=== PATIENT | male | born 1990 | race African-American/Black ===

== ENCOUNTER 2017-07-03 11:11 | Emergency (ER) | payer OTHER ==
[~2017-07-03] VITALS: Ht 182.9 cm; Wt 74.8 kg
[2017-07-03 11:26] VITALS: BP 115/63
[2017-07-03] MEDS ORDERED: Ketorolac 30mg Inj IM ONE (11:45)
[2017-07-03] MEDS ORDERED: TAMIFLU75 MG ORAL (12:19)
[2017-07-03] MEDS ORDERED: AMOXICILLIN500 MG ORAL (12:19)
[2017-07-03 12:28] VITALS: BP 115/63
--- NOTE | 2017-07-03 13:20 | Diagnostic Imaging Report ---
Indication: Cough Technique: XRAY Chest 1v Comparison: None Findings: Heart is borderline enlarged. Mediastinal contours are sharp. There is no focal consolidation, pneumothorax or pleural effusion. Osseous structures demonstrate no acute abnormality. Cervical rib noted on the right, with likely small cervical rib also the left. Abdominal shield in place. Impression: No radiographic evidence of acute cardiopulmonary disease. Borderline cardiomegaly.
--- NOTE | 2017-07-04 15:47 | Emergency Room Report ---
History of Present Illness General Chief Complaint: Fever Source: Patient Present Illness HPI 26-year-old male presents ED for evaluation. Patient states he's had bodyaches and chills and fever times one day. States cough is productive with yellowish phlegm. Denies sore throat or earache. Denies sick contacts recent travel. Pain is throbbing, 8 out of 10, nonradiating. No other aggravating relieving factors. Denies any other associated symptoms Allergies: Coded Allergies: No Known Allergies (Unverified , 07/03/17) Patient History Past Medical History: none Past Surgical History: none Pertinent Family History: none Social History: Denies: smoking, alcohol use, drug use Immunizations: UTD Reviewed Nursing Documentation: PMH: Agreed, PSxH: Agreed Nursing Documentation-PMH Past Medical History: No Stated History Review of Systems All Other Systems: negative except mentioned in HPI Physical Exam Vital Signs Date Time Temp Pulse Resp B/P (MAP) Pulse Ox O2 Delivery O2 Flow Rate FiO2 07/03/17 11:19 103.3 94 16 115/63 95 Room Air Sp02 EP Interpretation: reviewed, normal General Appearance: no apparent distress, alert, GCS 15, non-toxic Head: normocephalic, atraumatic Eyes: bilateral eye normal inspection, bilateral eye PERRL ENT: hearing grossly normal, normal pharynx, no angioedema, normal voice Neck: full range of motion, supple/symm/no masses Respiratory: chest non-tender, lungs clear, normal breath sounds, speaking full sentences Cardiovascular #1: regular rate, rhythm, no edema Cardiovascular #2: 2+ carotid (R), 2+ carotid (L), 2+ radial (R), 2+ radial (L) , 2+ dorsalis pedis (R), 2+ dorsalis pedis (L) Gastrointestinal: normal bowel sounds, non tender, soft, non-distended, no guarding, no rebound Rectal: deferred Genitourinary: normal inspection, no CVA tenderness Musculoskeletal: back normal, gait/station normal, normal range of motion, non- tender Neurologic: alert, oriented x3, responsive, motor strength/tone normal, sensory intact, speech normal Psychiatric: judgement/insight normal, memory normal, mood/affect normal, no suicidal/homicidal ideation Reflexes: 3+ bicep (R), 3+ bicep (L), 3+ tricep (R), 3+ tricep (L), 3+ knee (R) , 3+ knee (L) Skin: normal color, no rash, warm/dry, well hydrated Lymphatic: no adenopathy Medical Decision Making Diagnostic Impression: Primary Impression: Flu-like symptoms ER Course Hospital Course 26-year-old M presents to ED complaining of fever + bodyaches + cough Differential diagnoses include: URI, pharyngitis, otitis media, influenza Clinical course Patient placed on stretcher. After initial history physical exam reveals a young male in no acute distress. Bilateral TM unremarkable, no pharyngeal erythema. Lungs clear. No CVA tenderness. Given toradol in ED. chest x-ray shows no acute process Clinical findings consistent with influenza. Given that I will treat with Tamiflu Diagnosis - influenza-like symptoms Stable and discharged home with prescriptions for tamiflu. drink plenty of fluids. Instructed to followup with PMD. Return to ED if symptoms recur or worsen Chest X-Ray Diagnostic Results Chest X-Ray Diagnostic Results : Chest X-Ray Ordered: Yes # of Views/Limited/Complete: 1 View Indication: Other - cough EP Interpretation: Yes Interpretation: no consolidation, no effusion, no pneumothorax, no acute cardiopulmonary disease Impression: No acute disease Electronically Signed by: Electronically signed by Juanito Olson MD Last Vital Signs Date Time Temp Pulse Resp B/P (MAP) Pulse Ox O2 Delivery O2 Flow Rate FiO2 07/03/17 12:28 103.2 88 16 115/63 95 Room Air Status: improved Disposition: HOME, SELF-CARE Condition: Stable Scripts Oseltamivir Phosphate (Tamiflu) 75 Mg Capsule 75 MG ORAL TWICE A DAY for 5 Days, CAP Prov: JUANITO OLSON M.D. 07/03/17 Amoxicillin* (AMOXIL*) 500 Mg Capsule 500 MG ORAL THREE TIMES A DAY, #21 CAP Prov: JUANITO OLSON M.D. 07/03/17 Patient Instructions: Influenza, Adult, [id number] JUANITO OLSON M.D. Jul 04, 2017 15:47
== END 2017-07-03 12:29 | disposition home or self-care (01) ==
LOC: EMR 11:54
DX: J11.1 Influenza due to unidentified influenza virus with other respiratory manifestations (principal)
CPT/HCPCS: 71045; 96372; 99283; J1885

== ENCOUNTER 2017-09-24 13:09 | Emergency (ER) | payer OTHER ==
[~2017-09-24] VITALS: Ht 180.3 cm; Wt 74.8 kg
[~2017-09-24 13:09] MED LIST: AMOXICILLIN500 MG ORAL; TAMIFLU75 MG ORAL
[2017-09-24] MEDS ORDERED: NKM (13:15)
[2017-09-24] MEDS ORDERED: Lidocaine 1% MPF 10mg/ml 5ml INJ ONE (14:00)
[2017-09-24] MEDS ORDERED: Bacitracin Oint UD TOPIC ONE (14:00)
[2017-09-24] MEDS ORDERED: Tetanus/Diptheria/Pertussis Vaccine 0.5ml Syr IM ONE (14:00)
[2017-09-24] MEDS ORDERED: IBUPROFEN600 MG ORAL (15:11)
[2017-09-24 15:25] VITALS: BP 113/78
[2017-09-24 15:26] VITALS: BP 5/11
--- NOTE | 2017-09-24 21:12 | Emergency Room Report ---
History of Present Illness General Chief Complaint: Laceration Source: Patient Present Illness HPI The patient is a 26 old male presenting for right hand injury. He states that he was dancing at home today and struck his hand against a piece of glass which broke. He noticed pain and bleeding to the area. Pain is a 4/10 dull ache and he has numbness of his R index finger. Pain does not radiate. Last tetanus shot unknown. Allergies: Coded Allergies: No Known Allergies (Unverified , 07/03/17) Patient History Past Medical History: see triage record Pertinent Family History: none Reviewed Nursing Documentation: PMH: Agreed; PSxH: Agreed Nursing Documentation-PMH Past Medical History: No Stated History Review of Systems All Other Systems: negative except mentioned in HPI Physical Exam Vital Signs Date Time Temp Pulse Resp B/P (MAP) Pulse Ox O2 Delivery O2 Flow Rate FiO2 09/24/17 13:12 98.6 96 17 5/11 96 Room Air 98.6 Sp02 EP Interpretation: reviewed, normal General Appearance: no apparent distress, alert, GCS 15, non-toxic Head: normocephalic, atraumatic Eyes: bilateral eye normal inspection, bilateral eye PERRL Musculoskeletal: back normal, gait/station normal, normal range of motion Neurologic: alert, oriented x3, responsive, motor strength/tone normal, sensory intact, speech normal Psychiatric: judgement/insight normal, memory normal, mood/affect normal, no suicidal/homicidal ideation Skin: no rash, normal turgor, laceration - 3cm linear laceration of the R hand dorsal surface. Minimal bleeding Lymphatic: no adenopathy Procedures Laceration/Wound Repair Laceration/Wound Repair : Consent: Verbal Wound Location: upper extremity Wound's Depth, Shape: superficial, linear Wound Length (cm): 3 Wound Explored: clean Irrigated w/ Saline (ccs): 100 Betadine Prep?: Yes Anesthesia: 1% Lidocaine Volume Anesthetic (ccs): 4 Wound Debrided: minimal Wound Repaired With: sutures Suture Size/Type: 5:0, proline Number of Sutures: 5 Layer Closure?: No Sterile Dressing Applied?: Yes Splint Applied?: No Sling Applied?: No Patient Tolerated: Well Complications: None Medical Decision Making PA Attestation Dr. Alvarez is my supervising physician. Patient management was discussed with my supervising physician Diagnostic Impression: Primary Impression: Laceration of hand Qualified Codes: S61.411A - Laceration without foreign body of right hand, initial encounter ER Course The patient is a 26 old male presenting for right hand injury. Ddx considered include but not limited to fracture, tendon/ligament injury, avulsion, nerve damage Physical exam: No apparent distress Right hand is a 3 cm linear horizontal laceration over the dorsal surface. Minimal bleeding. Sensation is intact to light touch. Full active range of motion of the wrist and fingers intact The wound was irrigated with normal saline and cleaned with betadine. A 27g needle was used to administer 4mL of lidocaine w.o epi for local anaesthesia. 5 sutures were placed with 5-0 prolene. The wound was well approximated and the patient tolerated the procedure well. The wound was then cleaned and bacitracin was applied. Patient is given indications to return as well as suture care instructions. Last Vital Signs Date Time Temp Pulse Resp B/P (MAP) Pulse Ox O2 Delivery O2 Flow Rate FiO2 09/24/17 15:26 98.6 17 5/11 96 Room Air 98.6 09/24/17 15:25 67 Status: improved Disposition: HOME, SELF-CARE Condition: Improved Scripts Ibuprofen* (MOTRIN*) 600 Mg Tablet 600 MG ORAL Q8H PRN for For Pain, #30 TAB 0 Refills Prov: BAYLEE MILES 09/24/17 Patient Instructions: Laceration Care, Adult Additional Instructions: I discussed my findings with the patient. All questions and concerns have been answered. Treatment and medication compliance have been addressed. I advised the patient that they need to follow up with PMD in 7 days for wound check and suture removal. If you are unable to see PMD, return to the ED in 7 days. Return to ED if pain remains or worsens, you notice discharge from the wound, the wound continues to bleed, the suture/s fall out, you notice a fever or chills, or for any reason. Patient is advised to keep the wound clean and apply an antibacterial ointment. Patient verbalized understanding of discharge instructions. BAYLEE MILES Sep 24, 2017 21:12
== END 2017-09-24 15:26 | disposition home or self-care (01) ==
LOC: EMR 13:30
DX: S61.411A Laceration without foreign body of right hand, initial encounter (principal); Z23 Encounter for immunization; W25.XXXA Contact with sharp glass, initial encounter; Y93.41 Activity, dancing; Y92.009 Unspecified place in unspecified non-institutional (private) residence as the place of occurrence of the external cause
CPT/HCPCS: 12002; 90471; 90715; 99284; Z7502

== ENCOUNTER 2018-07-26 12:08 | Emergency (ER) | payer BC, OTHER ==
[~2018-07-26] VITALS: Ht 177.8 cm; Wt 74.8 kg
[~2018-07-26 12:08] MED LIST changes: +IBUPROFEN600 MG ORAL; +NKM
[2018-07-26 12:16] VITALS: BP 131/77
--- NOTE | 2018-07-26 12:16 | NUR ---
ED Nurse Note: Pt came in from home due to chest discomfort pressure -like x 2 months, pt ahs been coughing with sorethroat also. SAT 98% RA. AOx4, VSS. Will cont to monitor.
--- NOTE | 2018-07-26 12:52 | Emergency Room Report ---
History of Present Illness General Chief Complaint: General Complaint Source: Patient Present Illness HPI 27-year-old male presents to the emergency department complaining of intermittent cough 2 months in addition to nasal congestion, rhinorrhea, sore throat and intermittent chills. Patient denies ill contacts he does report recent travel. Patient states that he is a daily smoker of marijuana and intermittent cigarettes here and there. Patient denies history of asthma or COPD. He denies fevers. He reports intermittently he'll have some pain throughout the rib cage after coughing persistently he states he currently does not have any pain and when he does it's usually about a 3 out of 10 in severity. She denies any relieving factors states that smoking may be aggravating his symptoms.Denies CP, Palpitations, LOC, AMS, dizziness, Changes in Vision, Sensation, paresthesias, or a sudden severe headache. Allergies: Coded Allergies: No Known Allergies (Unverified , 07/03/17) Patient History Past Medical History: see triage record Past Surgical History: none Pertinent Family History: none Reviewed Nursing Documentation: PMH: Agreed; PSxH: Agreed Nursing Documentation-PMH Past Medical History: No Stated History Review of Systems All Other Systems: negative except mentioned in HPI Physical Exam Vital Signs Date Time Temp Pulse Resp B/P (MAP) Pulse Ox O2 Delivery O2 Flow Rate FiO2 07/26/18 12:18 98.4 74 14 119/74 98 Room Air Sp02 EP Interpretation: reviewed, normal General Appearance: no apparent distress, alert, GCS 15, non-toxic Head: normocephalic, atraumatic Eyes: bilateral eye normal inspection, bilateral eye PERRL ENT: hearing grossly normal, normal pharynx, normal voice, TMs + canals normal , uvula midline, nasal congestion, pharyngeal erythema Neck: full range of motion, no meningismus, no bony tend Respiratory: chest non-tender, lungs clear, normal breath sounds, no respiratory distress, no wheezing, speaking full sentences Cardiovascular #1: regular rate, rhythm Musculoskeletal: back normal, gait/station normal, normal range of motion, non- tender Neurologic: alert, oriented x3, responsive, motor strength/tone normal, sensory intact, speech normal, grossly normal Psychiatric: judgement/insight normal Skin: normal color, no rash, warm/dry, well hydrated Lymphatic: no adenopathy Medical Decision Making PA Attestation Dr. Rogers is my supervising physician whom pt. management has been discussed with. Diagnostic Impression: Primary Impression: Bronchitis Additional Impression: Post-nasal drainage ER Course 27-year-old male presents to the emergency department complaining of intermittent cough 2 months in addition to nasal congestion, rhinorrhea, sore throat and intermittent chills. Patient denies ill contacts he does report recent travel. Patient states that he is a daily smoker of marijuana and intermittent cigarettes here and there. Patient denies history of asthma or COPD. He denies fevers. He reports intermittently he'll have some pain throughout the rib cage after coughing persistently he states he currently does not have any pain and when he does it's usually about a 3 out of 10 in severity. She denies any relieving factors states that smoking may be aggravating his symptoms.Denies CP, Palpitations, LOC, AMS, dizziness, Changes in Vision, Sensation, paresthesias, or a sudden severe headache. Ddx considered but are not limited to URI, pneumonia, PE, strep pharyngitis, meningitis. Vital signs: Pt. is afebrile, the remaining VS are WNL H&PE are most consistent with URI- no meningeal signs, oropharynx is not involved, no evidence of bacterial infection at this time. ORDERS: none required at this time, the diagnosis is clinical ED INTERVENTIONS: None required at this time. --PT. EDUCATION: Discussed antibiotic resistance with inappropriate prescribing of antibiotics for viral illnesses. Discussed signs and symptoms to indicate viral illness versus bacterial illness. DISCHARGE: At this time pt. is stable for d/c to home. Will provide printed patient care instructions, and any necessary prescriptions. Care plan and follow up instructions have been discussed with the patient prior to discharge. Last Vital Signs Date Time Temp Pulse Resp B/P (MAP) Pulse Ox O2 Delivery O2 Flow Rate FiO2 07/26/18 12:18 98.4 74 14 119/74 98 Room Air Disposition: HOME, SELF-CARE Condition: Stable Patient Instructions: Acute Bronchitis, [id number] Additional Instructions: Take medications as directed. Follow up with a Primary Care Provider in 3-5 days, even if your symptoms have resolved. --Please review list of primary care clinics, if you do not already have a primary care provider Return sooner to ED if new symptoms occur, or current symptoms become worse. Do not drink alcohol, drive, or operate heavy machinery while taking Cough Syrup as this may cause drowsiness. - Please note that this Emergency Department Report was dictated using [id number] technology software, occasionally this can lead to erroneous entry secondary to interpretation by the dictation equipment. Megan Bashir Jul 26, 2018 12:52
[2018-07-26] MEDS ORDERED: ZYRTEC-D TABLE1 EACH ORAL (12:53)
[2018-07-26] MEDS ORDERED: PROMETHAZINE-C118 M1 ORAL (12:53)
[2018-07-26] MEDS ORDERED: NAPROXEN500 M1 ORAL (12:53)
[2018-07-26 12:54] VITALS: BP 119/74
--- NOTE | 2018-07-26 12:54 | NUR ---
ED Nurse Note: Pt is clear to be discharged by ERMD. Discharge paper and prescription given, pt verbalized understanding of discharge instruction. Wristband removed. Aox4, VSS. Pt ambulated out with steady gait with all belongings.
== END 2018-07-26 12:54 | disposition home or self-care (01) ==
LOC: EMR 12:38
DX: J40 Bronchitis, not specified as acute or chronic (principal); R09.82 Postnasal drip
CPT/HCPCS: 99282